=== PATIENT | female | born 1935 | race Caucasian/White ===

== ENCOUNTER 2018-07-17 04:23 | Emergency (ER) | payer MEDICARE, OTHER ==
[2018-07-17 04:48] VITALS: BP 136/73
[2018-07-17] MEDS ORDERED: Ketorolac 30 MG/ML SDV IM ONE (05:12)
--- NOTE | 2018-07-17 05:15 | EDM.PDOC ---
ED HPI GENERAL MEDICAL PROBLEM - General Chief Complaint: Abdominal Pain Stated Complaint: ABDOMINAL PAIN Time Seen by Provider: 07/17/18 05:07 Source of Information: Reports: Patient, Family, RN Notes Reviewed History Limitations: Reports: No Limitations - History of Present Illness INITIAL COMMENTS - FREE TEXT/NARRATIVE: 83-year-old female presents emergency department day complaint of abdominal pain , she states she's had abdominal pain that started about 5 hours prior describes it as it dull achy pain is constant nature she does feel short of breath but no nausea vomiting still passing gas had normal bowel movements no heart history, past surgical history cholecystectomy Upper Abdomen Pain Score (Numeric/FACES): 5 - Related Data Allergies Allergy/AdvReac Type Severity Reaction Status Date / Time gabapentin Allergy Itching Verified 07/17/18 04:50 Home Meds: Home Meds Acetaminophen [Tylenol] 650 mg PO Q4H PRN 10/09/13 [History] Lactobacillus Acidophilus [Acidophilus] 1 each PO DAILY 10/09/13 [History] Multivitamin [Multivitamins] 1 each PO DAILY 10/09/13 [History] Simvastatin [Zocor] 10 mg PO BEDTIME 10/09/13 [History] Aspirin 81 mg PO DAILY 07/17/18 [History] Past Medical History Other Gastrointestinal History: "twisted intestiine" Oncologic (Cancer) History: Reports: Breast - Past Surgical History Head Surgeries/Procedures: Reports: None HEENT Surgical History: Reports: Cataract Surgery GI Surgical History: Reports: Cholecystectomy, Other (See Below) Other GI Surgeries/Procedures: Joi Oncologic Surgical History: Reports: Mastectomy Dermatological Surgical History: Reports: None Social & Family History - Tobacco Use Smoking Status *Q: Never Smoker Second Hand Smoke Exposure: No - Caffeine Use Caffeine Use: Reports: Coffee, Soda, Tea - Recreational Drug Use Recreational Drug Use: No ED ROS GENERAL - Review of Systems Review Of Systems: See Below Constitutional: Denies: Fever, Chills HEENT: Reports: No Symptoms Respiratory: Reports: Shortness of Breath Cardiovascular: Reports: No Symptoms GI/Abdominal: Reports: Abdominal Pain, Flatus. Denies: Constipation, Diarrhea, Nausea, Vomiting : Reports: No Symptoms Musculoskeletal: Reports: No Symptoms Skin: Reports: No Symptoms Neurological: Reports: No Symptoms ED EXAM, GI/ABD - Physical Exam Exam: See Below Exam Limited By: No Limitations General Appearance: Alert, WD/WN, No Apparent Distress Head: Atraumatic Neck: Normal Inspection, Supple, Non-Tender, Full Range of Motion Respiratory/Chest: No Respiratory Distress, Lungs Clear, Normal Breath Sounds, No Accessory Muscle Use, Chest Non-Tender Cardiovascular: Regular Rate, Rhythm, No Murmur GI/Abdominal Exam: Soft, Tender (Right upper quadrant) Course - Vital Signs Last Recorded V/S: Last Vital Signs Temp 97 F 07/17/18 04:49 Pulse 78 07/17/18 04:49 Resp 16 07/17/18 04:49 BP 136/73 07/17/18 04:49 Pulse Ox 98 07/17/18 04:49 - Orders/Labs/Meds Labs: Laboratory Tests 07/17/18 07/17/18 07/17/18 Range/Units 05:25 05:25 05:25 WBC 7.6 (4.5-11.0) K/uL RBC 4.13 (3.30-5.50) M/uL Hgb 13.2 (12.0-15.0) g/dL Hct 40.0 (36.0-48.0) % MCV 97 (80-98) fL MCH 32 H (27-31) pg MCHC 33 (32-36) % Plt Count 180 (150-400) K/uL Neut % (Auto) 77 H (36-66) % Lymph % (Auto) 10 L (24-44) % [place] % (Auto) 10 H (2-6) % Eos % (Auto) 2 (2-4) % Baso % (Auto) 1 (0-1) % Sodium 141 (140-148) mmol/L Potassium 4.0 (3.6-5.2) mmol/L Chloride 103 (100-108) mmol/L Carbon Dioxide 31 (21-32) mmol/L Anion Gap 7.5 (5.0-14.0) mmol/L BUN 13 (7-18) mg/dL Creatinine 0.9 (0.6-1.0) mg/dL Est Cr Clr Drug Dosing 33.42 mL/min Estimated GFR (MDRD) 60 (>60) Glucose 122 H (74-106) mg/dL Lactic Acid 1.4 (0.4-2.0) mmol/L Calcium 9.7 (8.5-10.1) mg/dL Total Bilirubin 0.5 D (0.2-1.0) mg/dL AST 30 (15-37) U/L ALT 30 (12-78) U/L Alkaline Phosphatase 59 (46-116) U/L CK-MB (CK-2) 1.3 (0-3.6) mg/mL Troponin I < 0.017 (0.000-0.056) ng/mL Total Protein 7.6 (6.4-8.2) g/dL Albumin 4.1 (3.4-5.0) g/dL Globulin 3.5 (2.3-3.5) g/dL Albumin/Globulin Ratio 1.2 (1.2-2.2) Lipase 80 (73-393) U/L Urine Color Urine Appearance Urine pH (4.5-8.0) Ur Specific [place] (1.008-1.030) Urine Protein (NEGATIVE) mg/dL Urine Glucose (UA) (NEGATIVE) mg/dL Urine Ketones (NEGATIVE) mg/dL Urine Occult Blood (NEGATIVE) Urine Nitrite (NEGATIVE) Urine Bilirubin (NEGATIVE) Urine Urobilinogen (NORMAL) mg/dL Ur Leukocyte Esterase (NEGATIVE) Urine RBC (0-5) Urine WBC (0-5) Ur Epithelial Cells Amorphous Sediment Urine Bacteria Urine Mucus 07/17/18 Range/Units 05:35 WBC (4.5-11.0) K/uL RBC (3.30-5.50) M/uL Hgb (12.0-15.0) g/dL Hct (36.0-48.0) % MCV (80-98) fL MCH (27-31) pg MCHC (32-36) % Plt Count (150-400) K/uL Neut % (Auto) (36-66) % Lymph % (Auto) (24-44) % [place] % (Auto) (2-6) % Eos % (Auto) (2-4) % Baso % (Auto) (0-1) % Sodium (140-148) mmol/L Potassium (3.6-5.2) mmol/L Chloride (100-108) mmol/L Carbon Dioxide (21-32) mmol/L Anion Gap (5.0-14.0) mmol/L BUN (7-18) mg/dL Creatinine (0.6-1.0) mg/dL Est Cr Clr Drug Dosing mL/min Estimated GFR (MDRD) (>60) Glucose (74-106) mg/dL Lactic Acid (0.4-2.0) mmol/L Calcium (8.5-10.1) mg/dL Total Bilirubin (0.2-1.0) mg/dL AST (15-37) U/L ALT (12-78) U/L Alkaline Phosphatase (46-116) U/L CK-MB (CK-2) (0-3.6) mg/mL Troponin I (0.000-0.056) ng/mL Total Protein (6.4-8.2) g/dL Albumin (3.4-5.0) g/dL Globulin (2.3-3.5) g/dL Albumin/Globulin Ratio (1.2-2.2) Lipase (73-393) U/L Urine Color Yellow Urine Appearance Clear Urine pH 8.0 (4.5-8.0) Ur Specific [place] 1.010 (1.008-1.030) Urine Protein Negative (NEGATIVE) mg/dL Urine Glucose (UA) Normal (NEGATIVE) mg/dL Urine Ketones Negative (NEGATIVE) mg/dL Urine Occult Blood Negative (NEGATIVE) Urine Nitrite Negative (NEGATIVE) Urine Bilirubin Negative (NEGATIVE) Urine Urobilinogen Normal (NORMAL) mg/dL Ur Leukocyte Esterase Negative (NEGATIVE) Urine RBC 0-5 (0-5) Urine WBC 0-5 (0-5) Ur Epithelial Cells Not seen Amorphous Sediment Not seen Urine Bacteria Not seen Urine Mucus Not seen Meds: Medications Discontinued Medications Generic Name Dose Route Start Last Admin Trade Name Mikey PRN Reason Stop Dose Admin Ketorolac Tromethamine 30 mg 07/17/18 05:12 07/17/18 05:16 Toradol IM 07/17/18 05:13 30 mg ONETIME ONE Administration Departure - Departure Time of Disposition: 06:31 Disposition: Home, Self-Care 01 Condition: Fair Clinical Impression: Gastroenteritis - Discharge Information Referrals: Jose Alejandro Madrid MD [Primary Care Provider] - Forms: ED Department Discharge Additional Instructions: Continue regular medications, follow-up with your primary care in 2-3 days if no improvement call return to emergency department worsening of symptoms - Assessment/Plan Plan: Assessment Acuity = acute Site and laterality = gastroenteritis Etiology = unknown etiology Manifestations = abdominal pain Location of injury = Home Lab values = CBC, CMP, troponin, urinalysis unremarkable plain film abdomen consistent with gastroenteritis Plan Good relief with Toradol injection plan is discharge home follow-up primary care 2 to 3 days if not better This note was dictated using [employer] voice recognition software please call with any questions on syntax or grammar.
--- NOTE | 2018-07-17 06:01 | CRLCR ---
INDICATION: Abdominal pain COMPARISON: none TECHNIQUE: Portable AP erect abdomen and pelvis performed at 5:23 a.m. FINDINGS: Either short tests air-fluid levels within nondilated loops of small and large bowel. There is no evidence of free air. Patient has a scoliotic curvature of the spine convex left. Benign-appearing phleboliths are noted within the lower pelvis. IMPRESSION: Nonspecific bowel gas pattern with findings suggesting probable gastroenteritis. Dictated by Blayne Jacskon MD @ 07/17/2018 6:00:31 AM Dictated by: Blayne Jackson MD @ 07/17/2018 06:00:36 (Electronically Signed)
== END 2018-07-17 06:42 | disposition home or self-care (01) ==
LOC: JP.ED 04:23
DX: K52.9 Noninfective gastroenteritis and colitis, unspecified (principal); Z79.899 Other long term (current) drug therapy
CPT/HCPCS: 36415; 74018; 80053; 81001; 82553; 83605; 83690; 84484; 85025; 96372; 99284; J1885

== ENCOUNTER 2019-06-24 12:30 | Emergency (ER) | payer MEDICARE, OTHER ==
[2019-06-24 13:51] VITALS: BP 141/81; PULSE 75
--- NOTE | 2019-06-24 14:07 | EDM.PDOC ---
ED HPI GENERAL MEDICAL PROBLEM - General Chief Complaint: General Stated Complaint: RECATION TO MEDS Time Seen by Provider: 06/24/19 13:45 Source of Information: Reports: Patient, Family History Limitations: Reports: No Limitations - History of Present Illness INITIAL COMMENTS - FREE TEXT/NARRATIVE: 84-year-old female who is having some generalized dizziness, and superficial itching and burning of the skin on her legs after taking 6 days of ciprofloxacin and metronidazole for presumptive diverticulitis. She has no fever or chills and her abdominal pain is been gone for the past 4 days. No constipation, no urinary symptoms. Onset: Gradual Duration: Day(s): (Symptoms have developed over the past 2 days) Location: Reports: Generalized Associated Symptoms: Reports: Other (Dizziness, burning sensation on her lower extremities and generalized malaise and nausea) - Related Data Allergies Allergy/AdvReac Type Severity Reaction Status Date / Time gabapentin Allergy Itching Verified 07/17/18 04:50 Home Meds: Home Meds Acetaminophen [Tylenol] 650 mg PO Q4H PRN 10/09/13 [History] Lactobacillus Acidophilus [Acidophilus] 1 each PO DAILY 10/09/13 [History] Multivitamin [Multivitamins] 1 each PO DAILY 10/09/13 [History] Simvastatin [Zocor] 10 mg PO BEDTIME 10/09/13 [History] Aspirin 81 mg PO DAILY 07/17/18 [History] Ciprofloxacin HCl [Cipro] 500 mg PO BID 06/24/19 [History] metroNIDAZOLE [Metronidazole] 500 mg PO TID 06/24/19 [History] Past Medical History HEENT History: Reports: None Respiratory History: Reports: Bronchitis, Recurrent Gastrointestinal History: Reports: Other (See Below) Other Gastrointestinal History: "twisted intestiine" Oncologic (Cancer) History: Reports: Breast - Infectious Disease History Infectious Disease History: Reports: Hepatitis A, Other (See Below) Other Infectious Disease History: Hep. A was a long time ago - Past Surgical History Head Surgeries/Procedures: Reports: None HEENT Surgical History: Reports: Cataract Surgery Oncologic Surgical History: Reports: Mastectomy Dermatological Surgical History: Reports: None Social & Family History - Tobacco Use Smoking Status *Q: Never Smoker - Caffeine Use Caffeine Use: Reports: None - Recreational Drug Use Recreational Drug Use: Yes ED ROS GENERAL - Review of Systems Review Of Systems: See Below Constitutional: Reports: Malaise. Denies: Fever, Chills HEENT: Reports: No Symptoms Respiratory: Denies: Shortness of Breath, Cough Cardiovascular: Denies: Chest Pain GI/Abdominal: Reports: Nausea. Denies: Abdominal Pain (Abdominal pain is resolved), Constipation, Diarrhea, Vomiting : Reports: No Symptoms Skin: Reports: Other (A burning sensation of her lower extremities without visible rash or swelling is present) Psychiatric: Reports: Anxiety ED EXAM, GENERAL - Physical Exam Exam: See Below Exam Limited By: No Limitations General Appearance: Alert, No Apparent Distress Eye Exam: Bilateral Eye: Normal Inspection Throat/Mouth: Normal Inspection Head: Atraumatic Respiratory/Chest: No Respiratory Distress, Lungs Clear Cardiovascular: Regular Rate, Rhythm GI/Abdominal: Soft, Non-Tender Extremities: Normal Inspection. No: Pedal Edema Neurological: Alert, Oriented Course - Vital Signs Last Recorded V/S: Last Vital Signs Temp 96.1 F 06/24/19 13:51 Pulse 75 06/24/19 13:51 Resp 16 06/24/19 13:51 BP 141/81 H 06/24/19 13:51 Pulse Ox 95 06/24/19 13:51 - Re-Assessments/Exams Free Text/Narrative Re-Assessment/Exam: 06/24/19 15:53 Pain and symptoms are completely gone from the suspected diverticulitis, patient is likely having side effects from the medication so I recommended she stop the medicine. If not improving significantly in the next 48 hours she can return for recheck. Departure - Departure Time of Disposition: 14:14 Disposition: Home, Self-Care 01 Clinical Impression: Medication side effects - Discharge Information Instructions: Diverticulitis, [id number] Referrals: Jose Alejandro Madrid MD [Primary Care Provider] - Forms: ED Department Discharge Care Plan Goals: Stop antibiotics, resume regular diet and activity and stay hydrated. Recheck in 48-72 hours if not improving satisfactorily. Sepsis Event Note - Evaluation Sepsis Screening Result: No Definite Risk - Focused Exam Vital Signs: Vital Signs Temp Pulse Resp BP Pulse Ox 06/24/19 13:51 96.1 F 75 16 141/81 H 95 06/24/19 13:50 96.1 F 75 16 141/81 H 95 Date Exam was Performed: 06/24/19 Time Exam was Performed: 15:51
== END 2019-06-24 14:14 | disposition home or self-care (01) ==
LOC: JP.ED 12:30
DX: R42 Dizziness and giddiness (principal); L29.9 Pruritus, unspecified; T36.8X5A Adverse effect of other systemic antibiotics, initial encounter; T37.8X5A Adverse effect of other specified systemic anti-infectives and antiparasitics, initial encounter; Z88.8 Allergy status to other drugs, medicaments and biological substances; Z79.82 Long term (current) use of aspirin
CPT/HCPCS: 99282; 99283

== ENCOUNTER 2020-09-09 13:21 | Emergency (ER) | payer MEDICARE, OTHER ==
--- NOTE | 2020-09-09 14:59 | EDM.PDOC ---
ED HPI GENERAL MEDICAL PROBLEM - General Chief Complaint: Respiratory Problem Stated Complaint: CHEST ISSUES/SHORT OF BREATHE Time Seen by Provider: 09/09/20 15:30 Source of Information: Reports: Patient, Old Records History Limitations: Reports: No Limitations - History of Present Illness INITIAL COMMENTS - FREE TEXT/NARRATIVE: 85 yo female presents with a complaint of bilateral shoulder pain with SOB that occurred at home this morning. Sx's gone completely about the time she arrived in the ER. No cough. No fever. No personal hx of CAD, but does have a FHx of this. No calf pain or LE edema. Onset: Today, Sudden Onset Date: 09/09/20 Onset Time: 06:00 Duration: Hour(s):, Resolved Prior to Arrival Location: Reports: Upper Extremity, Left (both shoulders), Upper Extremity, Right Quality: Reports: Ache Severity: Moderate Improves with: Reports: Other (? time, gone now) Worsens with: Reports: Other (uncertain) Context: Reports: Other (See HPI) Associated Symptoms: Reports: Shortness of Breath (mild, now resolved) Treatments PHARMACY GRADUATE INTERN: Reports: Other (see below) (none) Chest Pain Score (Numeric/FACES): 3 - Related Data Allergies Allergy/AdvReac Type Severity Reaction Status Date / Time gabapentin Allergy Itching Verified 09/09/20 15:10 Home Meds: Home Meds Acetaminophen [Tylenol] 650 mg PO Q4H PRN 10/09/13 [History] Multivitamin [Multivitamins] 1 each PO DAILY 10/09/13 [History] Simvastatin [Zocor] 10 mg PO BEDTIME 10/09/13 [History] Aspirin 81 mg PO DAILY 07/17/18 [History] Past Medical History HEENT History: Reports: None Respiratory History: Reports: Bronchitis, Recurrent Gastrointestinal History: Reports: Other (See Below) Other Gastrointestinal History: "twisted intestiine" Oncologic (Cancer) History: Reports: Breast - Infectious Disease History Infectious Disease History: Reports: Hepatitis A, Other (See Below) Other Infectious Disease History: Hep. A was a long time ago - Past Surgical History Head Surgeries/Procedures: Reports: None HEENT Surgical History: Reports: Cataract Surgery Oncologic Surgical History: Reports: Mastectomy Dermatological Surgical History: Reports: None Social & Family History - Caffeine Use Caffeine Use: Reports: None ED ROS GENERAL - Review of Systems Review Of Systems: See Below Constitutional: Reports: No Symptoms HEENT: Reports: No Symptoms Respiratory: Reports: Shortness of Breath (now resolved) Cardiovascular: Reports: No Symptoms GI/Abdominal: Reports: No Symptoms : Reports: No Symptoms Musculoskeletal: Reports: Shoulder Pain (bilateral, now resolved) Skin: Reports: No Symptoms Neurological: Reports: No Symptoms ED EXAM, GENERAL - Physical Exam Exam: See Below Exam Limited By: No Limitations General Appearance: Alert, WD/WN, No Apparent Distress Eye Exam: Bilateral Eye: Normal Inspection Ears: Normal External Exam, Normal Canal, Hearing Grossly Normal, Normal TMs Ear Exam: Bilateral Ear: Auricle Normal, Canal Normal Nose: Normal Inspection, No Blood Throat/Mouth: Normal Inspection, Normal Lips, Normal Oropharynx, Normal Voice, No Airway Compromise Head: Atraumatic, Normocephalic Neck: Normal Inspection Respiratory/Chest: No Respiratory Distress, Lungs Clear, Normal Breath Sounds, No Accessory Muscle Use Cardiovascular: Regular Rate, Rhythm, No Edema GI/Abdominal: Normal Bowel Sounds, Soft, Non-Tender, No Distention Back Exam: Normal Inspection Extremities: Normal Inspection, Normal Range of Motion, Non-Tender, No Pedal Edema. No: Pedal Edema Neurological: Alert, Oriented, CN II-XII Intact, Normal Cognition, No Motor/Sensory Deficits Psychiatric: Normal Affect, Normal Mood Skin Exam: Warm, Dry, Intact, Normal Color, No Rash #1 Interpretation EKG Date: 09/09/20 Time: 14:50 Rhythm: NSR Rate (Beats/Min): 62 [place]: Normal P-Wave: Present QRS: RBBB ST-T: Normal QT: Normal Comparison: Change From Previous EKG (New RBBB, T wave inversion V4-V5 new since 10/10/14) Course - Vital Signs Last Recorded V/S: Last Vital Signs Temp 36.7 C 09/09/20 15:05 Pulse 61 09/09/20 15:53 Resp 13 09/09/20 15:53 BP 121/61 09/09/20 15:53 Pulse Ox 97 09/09/20 15:53 - Orders/Labs/Meds Orders: Active Orders 24 hr Category Date Time Status Cardiac Monitoring [RC] .As Directed Care 09/09/20 15:37 Active EKG Documentation Completion [RC] ASDIRECTED Care 09/09/20 14:52 Active EKG 12 Lead [EK] Routine Ther 09/09/20 14:52 Ordered Labs: Laboratory Tests 09/09/20 09/09/20 Range/Units 15:46 15:46 WBC 4.0 L (4.5-11.0) K/uL RBC 3.63 (3.30-5.50) M/uL Hgb 11.5 L (12.0-15.0) g/dL Hct 36.0 (36.0-48.0) % MCV 99 H (80-98) fL MCH 32 H (27-31) pg MCHC 32 (32-36) % Plt Count 148 L (150-400) K/uL Sodium 142 (140-148) mmol/L Potassium 4.4 (3.6-5.2) mmol/L Chloride 106 (100-108) mmol/L Carbon Dioxide 30 (21-32) mmol/L Anion Gap 6.5 (5.0-14.0) mmol/L BUN 11 (7-18) mg/dL Creatinine 0.9 (0.6-1.0) mg/dL Est Cr Clr Drug Dosing TNP Estimated GFR (MDRD) 59 L (>60) Glucose 109 H (74-106) mg/dL Calcium 9.9 (8.5-10.1) mg/dL Troponin I < 0.017 (0.000-0.056) ng/mL Departure - Departure Time of Disposition: 16:26 Disposition: Home, Self-Care 01 Condition: Good Clinical Impression: Atypical chest pain - Discharge Information *PRESCRIPTION DRUG MONITORING PROGRAM REVIEWED*: No *COPY OF PRESCRIPTION DRUG MONITORING REPORT IN PATIENT TERESA: No Instructions: Nonspecific Chest Pain, Adult, [id number] Referrals: Jose Alejandro Madrid MD [Primary Care Provider] - Forms: ED Department Discharge Additional Instructions: Return for your heart test as scheduled, someone may be calling you with the date/time. Continue your current medications. Return if worse. See your doctor after this test for a review of the results. Sepsis Event Note (ED) - Focused Exam Vital Signs: Vital Signs Temp Pulse Resp BP Pulse Ox 09/09/20 15:53 61 13 121/61 97 09/09/20 15:05 36.7 C 63 14 151/63 H 98 09/09/20 14:59 36.7 C 63 14 151/63 H 98 - My Orders Last 24 Hours: My Active Orders 09/09/20 14:52 EKG Documentation Completion [RC] ASDIRECTED EKG 12 Lead [EK] Routine 09/09/20 15:37 Cardiac Monitoring [RC] .As Directed - Assessment/Plan Last 24 Hours: My Active Orders 09/09/20 14:52 EKG Documentation Completion [RC] ASDIRECTED EKG 12 Lead [EK] Routine 09/09/20 15:37 Cardiac Monitoring [RC] .As Directed
[2020-09-09 15:54] VITALS: BP 121/61; PULSE 61
== END 2020-09-09 16:52 | disposition home or self-care (01) ==
LOC: JP.ED 13:21
DX: R07.89 Other chest pain (principal); Z88.8 Allergy status to other drugs, medicaments and biological substances; Z79.82 Long term (current) use of aspirin; Z79.899 Other long term (current) drug therapy
CPT/HCPCS: 36415; 80048; 84484; 85027; 93005; 99284; 99285-25

== ENCOUNTER 2020-09-16 13:17 | Emergency (ER) | payer MEDICARE, OTHER ==
[2020-09-16] MEDS ORDERED: Sodium Chloride 0.9% 10 ML Syringe FLUSH PRN (14:16)
--- NOTE | 2020-09-16 14:23 | EDM.PDOC ---
ED HPI GENERAL MEDICAL PROBLEM - General Chief Complaint: Abdominal Pain Stated Complaint: SHORT OF BREATH/STOMACH Time Seen by Provider: 09/16/20 14:05 Source of Information: Reports: Patient, Old Records, RN History Limitations: Reports: No Limitations - History of Present Illness INITIAL COMMENTS - FREE TEXT/NARRATIVE: 85 yo female presents with "abdominal cramping" and increased belching. Sx's began when she awoke today. Later ate breakfast without change. Slept for an hour and then when she awoke her sx's got worse. No SOB. [place] warm for awhile. Had some radiation for awhile to the left shoulder. Took Peptobismol without relief. No fever. No black stools. No hx of PUD. Has had a Joi fundoplication and a cholecystectomy. Was mildly SOB most of the morning, not now. Onset: Today Onset Date: 09/16/20 Duration: Hour(s):, Waxing/Waning Location: Reports: Abdomen, Upper Extremity, Left (shoulder) Quality: Reports: Other ("cramps", bloating) Severity: Moderate Improves with: Reports: Other (unknown) Worsens with: Reports: Other (unknown) Context: Reports: Other (See HPI) Associated Symptoms: Reports: Loss of Appetite (skipped lunch), Shortness of Breath (mild at home, now resolved). 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 (see below) (none) Abdominal Pain Score (Numeric/FACES): 8 - Related Data Allergies Allergy/AdvReac Type Severity Reaction Status Date / Time gabapentin Allergy Itching Verified 09/16/20 13:59 Home Meds: Home Meds Acetaminophen [Tylenol] 650 mg PO Q4H PRN 10/09/13 [History] Multivitamin [Multivitamins] 1 each PO DAILY 10/09/13 [History] Simvastatin [Zocor] 10 mg PO BEDTIME 10/09/13 [History] Aspirin 81 mg PO DAILY 07/17/18 [History] Past Medical History HEENT History: Reports: Cataract Cardiovascular History: Reports: High Cholesterol Respiratory History: Reports: Bronchitis, Recurrent Gastrointestinal History: Reports: Chronic Constipation, GERD, Other (See Below) Other Gastrointestinal History: "twisted intestiine" Genitourinary History: Reports: None Oncologic (Cancer) History: Reports: Breast - Infectious Disease History Infectious Disease History: Reports: Hepatitis A, Other (See Below) Other Infectious Disease History: Hep. A was a long time ago - Past Surgical History Head Surgeries/Procedures: Reports: None HEENT Surgical History: Reports: Cataract Surgery Respiratory Surgical History: Reports: None GI Surgical History: Reports: Cholecystectomy, Other (See Below) Other GI Surgeries/Procedures: Joi Oncologic Surgical History: Reports: Mastectomy Dermatological Surgical History: Reports: None Social & Family History - Tobacco Use Tobacco Use Status *Q: Never Tobacco User - Caffeine Use Caffeine Use: Reports: Coffee Caffeine Use Comment: [place] - Recreational Drug Use Recreational Drug Use: No ED ROS GENERAL - Review of Systems Review Of Systems: See Below Constitutional: Reports: Malaise HEENT: Reports: No Symptoms Respiratory: Reports: Shortness of Breath (mild at home earlier) Cardiovascular: Denies: Chest Pain Endocrine: Reports: No Symptoms GI/Abdominal: Reports: Abdominal Pain (cramps) : Reports: No Symptoms Musculoskeletal: Reports: No Symptoms Skin: Reports: No Symptoms Neurological: Reports: No Symptoms Psychiatric: Reports: No Symptoms ED EXAM, GI/ABD - Physical Exam Exam: See Below Exam Limited By: No Limitations General Appearance: Alert, WD/WN, No Apparent Distress Eyes: Bilateral: Normal Appearance Ears: Normal External Exam, Normal Canal, Hearing Grossly Normal Nose: Normal Inspection, No Blood Throat/Mouth: Normal Inspection, Normal Lips, Normal Oropharynx, Normal Voice, No Airway Compromise Head: Atraumatic, Normocephalic Neck: Normal Inspection Respiratory/Chest: No Respiratory Distress, Lungs Clear, Normal Breath Sounds, No Accessory Muscle Use, Chest Non-Tender Cardiovascular: Regular Rate, Rhythm, No Edema GI/Abdominal Exam: Normal Bowel Sounds, Soft, No Distention, Tender (mild upper abdominal tenderness). No: Non-Tender, Distended Back Exam: Normal Inspection Extremities: Normal Inspection, Normal Range of Motion, Non-Tender, No Pedal Edema Neurological: Alert, Oriented, CN II-XII Intact, Normal Cognition, No Motor/ Sensory Deficits Psychiatric: Normal Affect, Normal Mood Skin Exam: Warm, Dry, Intact, Normal Color, No Rash #1 Interpretation EKG Date: 09/16/20 Time: 14:45 Rhythm: NSR Rate (Beats/Min): 70 Iva: Normal P-Wave: Present QRS: RBBB ST-T: Normal QT: Normal Comparison: No Change (T wave inversions in several leads, not new.) Course - Vital Signs Last Recorded V/S: Last Vital Signs Temp 36.6 C 09/16/20 14:02 Pulse 75 09/16/20 14:02 Resp 22 H 09/16/20 14:04 BP 145/79 H 09/16/20 14:02 Pulse Ox 97 09/16/20 14:04 - Orders/Labs/Meds Orders: Active Orders 24 hr Category Date Time Status Cardiac Monitoring [RC] .As Directed Care 09/16/20 14:15 Active EKG Documentation Completion [RC] ASDIRECTED Care 09/16/20 14:15 Active UA W/MICROSCOPIC [URIN] Stat Lab 09/16/20 14:15 Ordered Sodium Chloride 0.9% [Saline Flush] Med 09/16/20 14:16 Active 10 ml FLUSH ASDIRECTED PRN Saline Lock Insert [OM.PC] Routine Oth 09/16/20 14:16 Ordered EKG 12 Lead [EK] Routine Ther 09/16/20 14:15 Ordered Medication Orders Sodium Chloride (Sodium Chloride 0.9% 10 Ml Syringe) 10 ml FLUSH ASDIRECTED PRN PRN Reason: Keep Vein Open Last Admin: 09/16/20 15:14 Dose: 10 ml Documented by: PREILOR Labs: Laboratory Tests 09/16/20 09/16/20 09/16/20 Range/Units 14:20 14:20 14:20 WBC 5.2 (4.5-11.0) K/uL RBC 3.78 (3.30-5.50) M/uL Hgb 12.0 (12.0-15.0) g/dL Hct 37.2 (36.0-48.0) % MCV 98 (80-98) fL MCH 32 H (27-31) pg MCHC 32 (32-36) % Plt Count 175 (150-400) K/uL Sodium 142 (140-148) mmol/L Potassium 4.3 (3.6-5.2) mmol/L Chloride 103 (100-108) mmol/L Carbon Dioxide 31 (21-32) mmol/L Anion Gap 7.7 (5.0-14.0) mmol/L BUN 14 (7-18) mg/dL Creatinine 0.9 (0.6-1.0) mg/dL Est Cr Clr Drug Dosing 36.34 mL/min Estimated GFR (MDRD) 59 L (>60) Glucose 102 (74-106) mg/dL Calcium 10.1 (8.5-10.1) mg/dL Troponin I < 0.017 (0.000-0.056) ng/mL Lipase 73 (73-393) U/L Meds: Medications Generic Name Dose Route Start Last Admin Trade Name Freq PRN Reason Stop Dose Admin Sodium Chloride 10 ml 09/16/20 14:16 09/16/20 15:14 Sodium Chloride 0.9% 10 Ml Syringe FLUSH 10 ml ASDIRECTED PRN Administration Keep Vein Open Discontinued Medications Generic Name Dose Route Start Last Admin Trade Name Freq PRN Reason Stop Dose Admin Al Hydroxide/Mg Hydroxide 30 ml 09/16/20 14:53 09/16/20 15:12 Aluminum Hydroxide/Magnesium Hydroxide/Simethicone Susp 30 Ml Cup PO 09/16/20 14:54 30 ml ONETIME ONE Administration Simethicone 160 mg 09/16/20 14:53 09/16/20 15:13 Simethicone 80 Mg Tab.Chew PO 09/16/20 14:54 160 mg ONETIME ONE Administration - Re-Assessments/Exams Free Text/Narrative Re-Assessment/Exam: 09/16/20 15:26 Some relief with Maalox and simethicone. Departure - Departure Time of Disposition: 15:40 Disposition: Home, Self-Care 01 Condition: Good Clinical Impression: Indigestion, Neuropathy - Discharge Information *PRESCRIPTION DRUG MONITORING PROGRAM REVIEWED*: Not Applicable *COPY OF PRESCRIPTION DRUG MONITORING REPORT IN PATIENT TERESA: Not Applicable Instructions: Indigestion, [id number], Peripheral Neuropathy Referrals: Jose Alejandro Madrid MD [Primary Care Provider] - Forms: ED Department Discharge Additional Instructions: F/U with your provider MILADIS for recheck. Take Maalox Plus OR Mylanta II 30 ml after meals and at bedtime as needed for your indigestion and gas. If you start getting loose stools, switch to simethicone for your indigestion. Sepsis Event Note (ED) - Evaluation Sepsis Screening Result: No Definite Risk - Focused Exam Vital Signs: Vital Signs Temp Pulse Resp BP Pulse Ox 09/16/20 14:04 22 H 97 09/16/20 14:02 36.6 C 75 22 H 145/79 H 97 - My Orders Last 24 Hours: My Active Orders 09/16/20 14:15 Cardiac Monitoring [RC] .As Directed EKG Documentation Completion [RC] ASDIRECTED UA W/MICROSCOPIC [URIN] Stat EKG 12 Lead [EK] Routine 09/16/20 14:16 Sodium Chloride 0.9% [Saline Flush] 10 ml FLUSH ASDIRECTED PRN Saline Lock Insert [OM.PC] Routine - Assessment/Plan Last 24 Hours: My Active Orders 09/16/20 14:15 Cardiac Monitoring [RC] .As Directed EKG Documentation Completion [RC] ASDIRECTED UA W/MICROSCOPIC [URIN] Stat EKG 12 Lead [EK] Routine 09/16/20 14:16 Sodium Chloride 0.9% [Saline Flush] 10 ml FLUSH ASDIRECTED PRN Saline Lock Insert [OM.PC] Routine
[2020-09-16] MEDS ORDERED: Simethicone 80 MG Tab.Chew PO ONE (14:53)
[2020-09-16] MEDS ORDERED: Aluminum Hydroxide/Magnesium Hydroxide/Simethicone Susp 30 ML Cup PO ONE (14:53)
[2020-09-16 15:43] VITALS: BP 130/64; PULSE 69
== END 2020-09-16 16:03 | disposition home or self-care (01) ==
LOC: JP.ED 13:17
DX: K30 Functional dyspepsia (principal); G62.9 Polyneuropathy, unspecified; E78.00 Pure hypercholesterolemia, unspecified; Z79.82 Long term (current) use of aspirin; Z79.899 Other long term (current) drug therapy; Z88.8 Allergy status to other drugs, medicaments and biological substances
CPT/HCPCS: 36415; 80048; 83690; 84484; 85027; 93005; 99284; A9270

== ENCOUNTER 2020-12-12 05:49 | Emergency (ER) | payer MEDICARE, OTHER ==
[2020-12-12] MEDS ORDERED: Albuterol 0.083% 2.5 MG/3 ML Neb Soln NEB ONE (06:30)
--- NOTE | 2020-12-12 06:36 | EDM.PDOC ---
<Madhav Curran G - Last Filed: 12/12/20 06:31> ED HPI GENERAL MEDICAL PROBLEM - General Chief Complaint: Respiratory Problem Stated Complaint: SOB Time Seen by Provider: 12/12/20 06:20 Source of Information: Reports: Patient, Old Records, RN History Limitations: Reports: No Limitations - History of Present Illness INITIAL COMMENTS - FREE TEXT/NARRATIVE: 85 yo female here with runny nose, congestion, cough and SOB. Sx's began in the night last night. No fever. No hx of lung dz. Cough non-productive. Here with her . Onset: Gradual Onset Date: 12/11/20 Duration: Day(s): (1+), Getting Worse Location: Reports: Face (nose), Chest Quality: Reports: Other (pain not reported) Severity: Moderate Improves with: Reports: None Worsens with: Reports: Other (time) Context: Reports: Other (See HPI) Associated Symptoms: Reports: Cough, Shortness of Breath. Denies: Fever/Chills Treatments BEFORE SCHOOL: Reports: Other (see below) (none) - Related Data Allergies Allergy/AdvReac Type Severity Reaction Status Date / Time gabapentin Allergy Itching Verified 12/12/20 06:11 Home Meds: Home Meds Acetaminophen [Tylenol] 650 mg PO Q4H PRN 10/09/13 [History] Multivitamin [Multivitamins] 1 each PO DAILY 10/09/13 [History] Simvastatin [Zocor] 10 mg PO BEDTIME 10/09/13 [History] Aspirin 81 mg PO DAILY 07/17/18 [History] Pregabalin 25 mg PO DAILY 12/12/20 [History] Past Medical History HEENT History: Reports: Cataract Cardiovascular History: Reports: High Cholesterol Respiratory History: Reports: Bronchitis, Recurrent Gastrointestinal History: Reports: Chronic Constipation, GERD, Other (See Below) Other Gastrointestinal History: "twisted intestiine" Genitourinary History: Reports: None 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 A was a long time ago - Past Surgical History Head Surgeries/Procedures: Reports: None HEENT Surgical History: Reports: Cataract Surgery Cardiovascular Surgical History: Reports: None Respiratory Surgical History: Reports: None GI Surgical History: Reports: Cholecystectomy, Other (See Below) Other GI Surgeries/Procedures: Joi Neurological Surgical History: Reports: Other (See Below) Oncologic Surgical History: Reports: Mastectomy Dermatological Surgical History: Reports: None Social & Family History - Tobacco Use Tobacco Use Status *Q: Never Tobacco User Second Hand Smoke Exposure: No - Caffeine Use Caffeine Use: Reports: Coffee Caffeine Use Comment: [place] - Recreational Drug Use Recreational Drug Use: No ED ROS GENERAL - Review of Systems Review Of Systems: See Below Constitutional: Denies: Fever, Chills HEENT: Reports: Rhinitis, Other (nasal congestion) Respiratory: Reports: Shortness of Breath, Cough. Denies: Wheezing, Sputum, Hemoptysis Cardiovascular: Reports: No Symptoms GI/Abdominal: Reports: No Symptoms : Reports: No Symptoms Musculoskeletal: Reports: No Symptoms Skin: Reports: No Symptoms Neurological: Reports: No Symptoms ED EXAM, GENERAL - Physical Exam Exam: See Below Exam Limited By: No Limitations General Appearance: Alert, WD/WN, No Apparent Distress Eye Exam: Bilateral Eye: Normal Inspection Ears: Normal External Exam, Normal Canal, Hearing Loss Ear Exam: Bilateral Ear: Auricle Normal, Canal Normal Nose: Clear Rhinorrhea, Other (bilat. nasal congestion) Throat/Mouth: Normal Inspection, Normal Lips, Normal Oropharynx, Normal Voice, No Airway Compromise Head: Atraumatic, Normocephalic Neck: Normal Inspection Respiratory/Chest: No Respiratory Distress, Lungs Clear, No Accessory Muscle Use, Chest Non-Tender, Decreased Breath Sounds Cardiovascular: Regular Rate, Rhythm Back Exam: Normal Inspection. No: CVA Tenderness (R), CVA Tenderness (L) Extremities: Normal Inspection, Normal Range of Motion, Non-Tender. No: No Pedal Edema (trace pitting edema of both LE's) Neurological: Alert, Oriented, CN II-XII Intact, Normal Cognition, No Motor/Sensory Deficits Psychiatric: Normal Affect, Normal Mood Skin Exam: Warm, Dry, Intact, Normal Color, No Rash Departure - Departure Disposition: Home, Self-Care 01 Clinical Impression: Nasal congestion - Discharge Information Referrals: Jose Alejandro Madrid MD [Primary Care Provider] - Forms: ED Department Discharge Additional Instructions: Try your nasal sprays that you have at home, continue symptomatic care, please followup with your primary care provider in 3-5 days if not better, please call return to the emergency department with worsening of symptoms. Sepsis Event Note (ED) - Evaluation Sepsis Screening Result: No Definite Risk <OfficerOscar - Last Filed: 12/12/20 07:25> Course - Vital Signs Last Recorded V/S: Last Vital Signs Temp 98.5 F 12/12/20 06:13 Pulse 98 12/12/20 07:10 Resp 16 12/12/20 07:10 BP 121/53 L 12/12/20 07:10 Pulse Ox 96 12/12/20 07:10 - Orders/Labs/Meds Orders: Active Orders 24 hr Category Date Time Status RT Aerosol Therapy [RC] ASDIRECTED Care 12/12/20 06:31 Active Meds: Medications Discontinued Medications Generic Name Dose Route Start Last Admin Trade Name Freq PRN Reason Stop Dose Admin Albuterol 2.5 mg 12/12/20 06:30 12/12/20 06:34 Albuterol 0.083% 2.5 Mg/3 Ml Neb Soln NEB 12/12/20 06:31 2.5 mg ONETIME ONE Administration Departure - Departure Time of Disposition: 07:24 Condition: Fair Sepsis Event Note (ED) - Focused Exam Vital Signs: Vital Signs Temp Pulse Resp BP Pulse Ox 12/12/20 07:10 98 16 121/53 L 96 12/12/20 06:13 98.5 F 88 12 139/68 94 L 12/12/20 06:12 98.5 F 88 12 139/68 94 L - Assessment/Plan Plan: Took over care from Dr. Curran at 7 AM Assessment Acuity = acute Site and laterality = nasal congestion Etiology = probably allergy related Manifestations = none Location of injury = Home Lab values = none Plan She had some relief with the albuterol neb provided she is going to try her nasal sprays that she has at home follow-up primary care 3 to 5 days if not better This note was dictated using [facility] voice recognition software please call with any questions on syntax or grammar.
[2020-12-12 07:10] VITALS: BP 121/53; PULSE 98
== END 2020-12-12 07:38 | disposition home or self-care (01) ==
LOC: JP.ED 05:49
DX: R09.81 Nasal congestion (principal); R09.89 Other specified symptoms and signs involving the circulatory and respiratory systems; R05 Cough; R06.02 Shortness of breath; E78.00 Pure hypercholesterolemia, unspecified; Z79.82 Long term (current) use of aspirin; Z88.8 Allergy status to other drugs, medicaments and biological substances; Z79.899 Other long term (current) drug therapy
CPT/HCPCS: 94640; 99284-25

== ENCOUNTER 2020-12-14 14:11 | Emergency (ER) | payer MEDICARE, OTHER ==
[2020-12-14 14:27] VITALS: BP 130/83; PULSE 67
--- NOTE | 2020-12-14 14:50 | EDM.PDOC ---
<Vanessa Barrios - Last Filed: 12/14/20 17:41> ED HPI GENERAL MEDICAL PROBLEM - General Chief Complaint: General Stated Complaint: TROUBLE BREATHING Time Seen by Provider: 12/14/20 14:35 Source of Information: Reports: Patient, Family History Limitations: Reports: No Limitations - History of Present Illness INITIAL COMMENTS - FREE TEXT/NARRATIVE: 85 year old female arrives to ER from home with due to cough and shortness of breath. 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 Over the last few day she has noticed that she feels more short of breath, and her cough has become more coarse with green sputum production. She states that she was seen in the ER 2 days ago but has not since improved. Denies fevers, being around recently ill people, has no nausea, vomiting, or diarrhea. Denies urinary complaints, abnormal bowel complaints, and has had a good oral intake despite her symptoms. Associated symptoms include nasal congestion, fatigue, and mild activity intolerance. Denies history of COPD, CHF, other significant health issues. Reports that she has been vaccinated for Covid-19. Denies history of smoking. Onset: Gradual Onset Date: 12/11/20 Duration: Day(s): Location: Reports: Other (cough- coarse with moderate shortness of breath) Quality: Reports: Other (no ) Improves with: Reports: None Worsens with: Reports: Rest Context: Reports: Activity Associated Symptoms: Reports: Cough, Weakness - Related Data Allergies Allergy/AdvReac Type Severity Reaction Status Date / Time gabapentin Allergy Itching Verified 12/12/20 06:11 Home Meds: Home Meds Acetaminophen [Tylenol] 650 mg PO Q4H PRN 10/09/13 [History] Multivitamin [Multivitamins] 1 each PO DAILY 10/09/13 [History] Simvastatin [Zocor] 10 mg PO BEDTIME 10/09/13 [History] Aspirin 81 mg PO DAILY 07/17/18 [History] Pregabalin 25 mg PO DAILY 12/12/20 [History] Past Medical History HEENT History: Reports: Cataract Cardiovascular History: Reports: High Cholesterol Respiratory History: Reports: Bronchitis, Recurrent Gastrointestinal History: Reports: Chronic Constipation, GERD, Other (See Below) Other Gastrointestinal History: "twisted intestiine" Genitourinary History: Reports: None 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 A was a long time ago - Past Surgical History Head Surgeries/Procedures: Reports: None HEENT Surgical History: Reports: Cataract Surgery Cardiovascular Surgical History: Reports: None Respiratory Surgical History: Reports: None GI Surgical History: Reports: Cholecystectomy, Other (See Below) Other GI Surgeries/Procedures: Joi Neurological Surgical History: Reports: Other (See Below) Oncologic Surgical History: Reports: Mastectomy Dermatological Surgical History: Reports: None Social & Family History - Tobacco Use Tobacco Use Status *Q: Never Tobacco User - Caffeine Use Caffeine Use: Reports: Coffee Caffeine Use Comment: [place] - Recreational Drug Use Recreational Drug Use: No ED ROS GENERAL - Review of Systems Review Of Systems: See Below Constitutional: Reports: Weakness, Fatigue. Denies: Fever, Chills, Decreased Appetite, Weight Loss HEENT: Reports: No Symptoms Respiratory: Reports: Shortness of Breath (with activity), Cough (coarse cough), Sputum (green sputum production) Cardiovascular: Denies: Chest Pain, Blood Pressure Problem, Palpitations, Syncope Endocrine: Reports: No Symptoms GI/Abdominal: Denies: Abdominal Pain, Black Stool, Diarrhea, Nausea, Vomiting : Denies: Dysuria, Flank Pain, Hematuria Musculoskeletal: Reports: No Symptoms Skin: Reports: No Symptoms. Denies: Bruising, Rash, Wound Neurological: Reports: No Symptoms. Denies: Confusion, Dizziness, Headache, Numbness, Syncope, Difficulty Walking Psychiatric: Reports: No Symptoms Hematologic/Lymphatic: Reports: No Symptoms Immunologic: Reports: No Symptoms ED EXAM, GENERAL - Physical Exam Exam: See Below Free Text/Narrative:: Hannah is a well appearing 85 year old female. She is resting on the cart with her at the bedside. Respirations are regular and non labored. skin is warm an dry. She is alert and oriented. She has clear lung sounds throughout, maybe slightly diminished in the LLL. Coarse cough is heard. Abdomen is non tender with palpation, no pedal edema present. Mucous membranes are moist. She is afebrile with normal vital signs. Able to easily situate self in bed. Exam Limited By: No Limitations General Appearance: Alert, WD/WN, No Apparent Distress Ears: Normal External Exam Nose: Normal Inspection, Normal Mucosa, No Blood Throat/Mouth: Normal Inspection, Normal Lips Head: Atraumatic Neck: Normal Inspection, Non-Tender, Full Range of Motion Respiratory/Chest: Lungs Clear, Normal Breath Sounds, Chest Non-Tender. No: Respiratory Distress, Crackles, Wheezing Cardiovascular: Normal Peripheral Pulses, Regular Rate, Rhythm, No Edema GI/Abdominal: Normal Bowel Sounds, Soft, Non-Tender, No Distention. No: Distended, Guarding, Rigid (Female) Exam: Deferred Rectal (Female) Exam: Deferred Back Exam: Normal Inspection, Full Range of Motion Extremities: Normal Inspection, Normal Range of Motion, Non-Tender. No: Pedal Edema Neurological: Alert, Oriented, Normal Cognition. No: Disoriented, Unresponsive Psychiatric: Normal Affect, Normal Mood Skin Exam: Warm, Dry, Intact, Normal Color, No Rash Lymphatic: No Adenopathy Course - Vital Signs Text/Narrative:: Chest xray ordered. Patient agrees with plan of care at this time. - Re-Assessments/Exams Free Text/Narrative Re-Assessment/Exam: 12/14/20 15:30 Patient updated that we are waiting for the radiologist read of her chest xray at this time. She continues to have cough and congestion. Reports that she has been using cough syrup and cough drops that do seem to help. Departure - Departure Time of Disposition: 16:02 Disposition: Home, Self-Care 01 Condition: Good Clinical Impression: Pneumonia - Discharge Information Instructions: Community-Acquired Pneumonia, Adult, [id number] Referrals: PCP,None [Primary Care Provider] - Forms: ED Department Discharge Additional Instructions: Your chest xray shows some left lower lobe pneumonia. We sent a prescription for Tessalon pearls #15, one tablet 3x per day as needed for your cough, and Zithromax (antibiotic), take as directed for 5 days. You can take tylenol or ibuprofen for fever and generalized aches. You can continue to use cough drops as needed as well. Return to the ER if you do not seem to improve with medications or if you develop chest pain, increased shortness of breath, fever, persistent vomiting or diarrhea. Sepsis Event Note (ED) - Evaluation Sepsis Screening Result: No Definite Risk <Estevan Berman - Last Filed: 12/15/20 07:35> Course - Vital Signs Last Recorded V/S: Last Vital Signs Temp 98.2 F 12/14/20 14:26 Pulse 67 12/14/20 14:26 Resp 20 12/14/20 14:26 BP 130/83 12/14/20 14:26 Pulse Ox 94 L 12/14/20 14:26 Attestation - Student - Attestation Statement Attestation Statement: I personally performed or re-performed the physical examination and medical decision making. I have verified all student documentation or findings, including history, physical exam and/or medical decision making.
--- NOTE | 2020-12-14 16:03 | CR ---
CHEST: 2 view CLINICAL HISTORY:SOB, cough COMPARISON:2014 FINDINGS: Heart size and pulmonary vascularity are normal. The aorta Lungs are hyperaerated.. There is some faint patchy density in the left infrahilar region extending posteriorly. This is felt to represent left lower lobe pneumonia. Some of this density is chronic. IMPRESSION: Patchy left lower lobe density is suspect for infiltrate. This is superimposed over some COPD
== END 2020-12-14 16:02 | disposition home or self-care (01) ==
LOC: JP.ED 14:11
DX: J18.9 Pneumonia, unspecified organism (principal); E78.00 Pure hypercholesterolemia, unspecified; Z79.82 Long term (current) use of aspirin; Z79.899 Other long term (current) drug therapy; Z88.8 Allergy status to other drugs, medicaments and biological substances
CPT/HCPCS: 71046; 71046-26; 99284-25

== ENCOUNTER 2021-04-18 11:34 | Emergency (ER) | payer MEDICARE, OTHER ==
[2021-04-18 13:52] VITALS: BP 123/59; PULSE 64
--- NOTE | 2021-04-18 14:23 | EDM.PDOC ---
ED HPI GENERAL MEDICAL PROBLEM - General Chief Complaint: Gastrointestinal Problem Stated Complaint: STOMACH UPSET, WEAK Time Seen by Provider: 04/18/21 14:15 Source of Information: Reports: Patient, Family, RN Notes Reviewed History Limitations: Reports: No Limitations - History of Present Illness INITIAL COMMENTS - FREE TEXT/NARRATIVE: 85-year-old female presents emergency department day complaint of abdominal pain, she states that increasing pain over the last 3 days. She is recently getting over a bout of shingles in the T12 region on the right side. Has been taking medications for that. She states the pain feels a little different its more in her abdomen she has had normal bowel movements no shortness of breath no chest pain no epigastric discomfort. - Related Data Allergies Allergy/AdvReac Type Severity Reaction Status Date / Time gabapentin Allergy Itching Verified 04/18/21 13:55 Home Meds: Home Meds Acetaminophen [Tylenol] 650 mg PO Q4H PRN 10/09/13 [History] Multivitamin [Multivitamins] 1 each PO DAILY 10/09/13 [History] Simvastatin [Zocor] 10 mg PO BEDTIME 10/09/13 [History] Aspirin 81 mg PO DAILY 07/17/18 [History] Pregabalin 25 mg PO BID 12/12/20 [History] Naproxen 250 mg PO TID 04/18/21 [History] Ondansetron [Zofran ODT] 4 mg SL Q8H PRN 04/18/21 [History] Past Medical History HEENT History: Reports: Cataract Cardiovascular History: Reports: High Cholesterol Respiratory History: Reports: Bronchitis, Recurrent Gastrointestinal History: Reports: Chronic Constipation, GERD, Other (See Below) Other Gastrointestinal History: "twisted intestiine" [employer] History: Reports: Oncologic (Cancer) History: Reports: Breast - Infectious Disease History Infectious Disease History: Reports: Hepatitis A, Other (See Below) Other Infectious Disease History: Hep. A was a long time ago - Past Surgical History Head Surgeries/Procedures: Reports: None HEENT Surgical History: Reports: Cataract Surgery Cardiovascular Surgical History: Reports: None Respiratory Surgical History: Reports: None GI Surgical History: Reports: Cholecystectomy, Other (See Below) Other GI Surgeries/Procedures: Joi Neurological Surgical History: Reports: Other (See Below) Oncologic Surgical History: Reports: Mastectomy Dermatological Surgical History: Reports: None Social & Family History - Tobacco Use Tobacco Use Status *Q: Never Tobacco User - Caffeine Use Caffeine Use: Reports: Coffee Caffeine Use Comment: quincy - Recreational Drug Use Recreational Drug Use: No ED ROS GENERAL - Review of Systems Review Of Systems: See Below Constitutional: Reports: No Symptoms HEENT: Reports: No Symptoms Respiratory: Reports: No Symptoms Cardiovascular: Reports: No Symptoms GI/Abdominal: Reports: Abdominal Pain, Flatus. Denies: Nausea, Vomiting Skin: Reports: Other (Zoster rash improving) ED EXAM, GI/ABD - Physical Exam Exam: See Below Exam Limited By: No Limitations General Appearance: Alert, WD/WN, No Apparent Distress Respiratory/Chest: No Respiratory Distress, Lungs Clear, Normal Breath Sounds, No Accessory Muscle Use, Chest Non-Tender Cardiovascular: Regular Rate, Rhythm, No Murmur GI/Abdominal Exam: Soft, Non-Tender Course - Vital Signs Last Recorded V/S: Last Vital Signs Temp 98.2 F 04/18/21 13:54 Pulse 64 04/18/21 13:54 Resp 16 04/18/21 13:54 BP 123/59 L 04/18/21 13:54 Pulse Ox 96 04/18/21 13:54 - Orders/Labs/Meds Orders: Active Orders 24 hr Category Date Time Status Abdomen 1V Upright [CR] Stat Exams 04/18/21 14:21 Taken LACTIC ACID [CHEM] Stat Lab 04/18/21 14:30 Received UA W/MICROSCOPIC [URIN] Stat Lab 04/18/21 14:21 Ordered Simethicone Med 04/18/21 15:12 Ordered 125 mg PO Q6H PRN Medication Orders Simethicone (Simethicone 125 Mg Tab.Chew) 125 mg PO Q6H PRN PRN Reason: Abdominal Pain Labs: Laboratory Tests 04/18/21 04/18/21 04/18/21 Range/Units 14:00 14:30 14:30 WBC 6.6 (4.5-11.0) K/uL RBC 3.52 (3.30-5.50) M/uL Hgb 11.2 L (12.0-15.0) g/dL Hct 34.3 L (36.0-48.0) % MCV 97 (80-98) fL MCH 32 H (27-31) pg MCHC 33 (32-36) % Plt Count 183 (150-400) K/uL Neut % (Auto) 69.5 H (36-66) % Lymph % (Auto) 14.5 L (24-44) % Parmer % (Auto) 14.3 H (2-6) % Eos % (Auto) 1.2 L (2-4) % Baso % (Auto) 0.5 (0-1) % Sodium 140 (140-148) mmol/L Potassium 4.3 (3.6-5.2) mmol/L Chloride 104 (100-108) mmol/L Carbon Dioxide 30 (21-32) mmol/L Anion Gap 6.2 (5.0-14.0) mmol/L BUN 16 (7-18) mg/dL Creatinine 0.9 (0.6-1.0) mg/dL Est Cr Clr Drug Dosing 32.23 mL/min Estimated GFR (MDRD) 59 L (>60) Glucose 102 (74-106) mg/dL Calcium 8.9 (8.5-10.1) mg/dL Total Bilirubin 0.4 (0.2-1.0) mg/dL AST 24 (15-37) U/L ALT 23 (12-78) U/L Alkaline Phosphatase 61 (46-116) U/L Total Protein 6.8 (6.4-8.2) g/dL Albumin 3.7 (3.4-5.0) g/dL Globulin 3.1 (2.3-3.5) g/dL Albumin/Globulin Ratio 1.2 (1.2-2.2) Lipase (73-393) U/L SARS CoV-2 RNA Rapid DUSTIN Negative 04/18/21 Range/Units 14:30 WBC (4.5-11.0) K/uL RBC (3.30-5.50) M/uL Hgb (12.0-15.0) g/dL Hct (36.0-48.0) % MCV (80-98) fL MCH (27-31) pg MCHC (32-36) % Plt Count (150-400) K/uL Neut % (Auto) (36-66) % Lymph % (Auto) (24-44) % Parmer % (Auto) (2-6) % Eos % (Auto) (2-4) % Baso % (Auto) (0-1) % Sodium (140-148) mmol/L Potassium (3.6-5.2) mmol/L Chloride (100-108) mmol/L Carbon Dioxide (21-32) mmol/L Anion Gap (5.0-14.0) mmol/L BUN (7-18) mg/dL Creatinine (0.6-1.0) mg/dL Est Cr Clr Drug Dosing mL/min Estimated GFR (MDRD) (>60) Glucose (74-106) mg/dL Calcium (8.5-10.1) mg/dL Total Bilirubin (0.2-1.0) mg/dL AST (15-37) U/L ALT (12-78) U/L Alkaline Phosphatase (46-116) U/L Total Protein (6.4-8.2) g/dL Albumin (3.4-5.0) g/dL Globulin (2.3-3.5) g/dL Albumin/Globulin Ratio (1.2-2.2) Lipase 46 L (73-393) U/L SARS CoV-2 RNA Rapid DUSTIN Meds: Medications Generic Name Dose Route Start Last Admin Trade Name Freq PRN Reason Stop Dose Admin Simethicone 125 mg 04/18/21 15:12 Simethicone 125 Mg Tab.Chew PO Q6H PRN Abdominal Pain Departure - Departure Time of Disposition: 15:15 Disposition: Home, Self-Care 01 Condition: Fair Clinical Impression: Abdominal pain Qualifiers: Abdominal location: generalized Qualified Code(s): R10.84 - Generalized abdominal pain - Discharge Information Instructions: Abdominal Pain, Adult Referrals: PCP,None [Primary Care Provider] - Forms: ED Department Discharge Additional Instructions: Try the simethicone this is [id number] medication, please followup with your primary care provider in 3-5 days if not better, please call return to the emergency department with worsening of symptoms. Sepsis Event Note (ED) - Evaluation Sepsis Screening Result: No Definite Risk - Focused Exam Vital Signs: Vital Signs Temp Pulse Resp BP Pulse Ox 04/18/21 13:54 98.2 F 64 16 123/59 L 96 04/18/21 13:51 98.2 F 64 16 123/59 L 96 - My Orders Last 24 Hours: My Active Orders 04/18/21 14:21 Abdomen 1V Upright [CR] Stat UA W/MICROSCOPIC [URIN] Stat 04/18/21 14:30 LACTIC ACID [CHEM] Stat 04/18/21 15:12 Simethicone 125 mg PO Q6H PRN - Assessment/Plan Last 24 Hours: My Active Orders 04/18/21 14:21 Abdomen 1V Upright [CR] Stat UA W/MICROSCOPIC [URIN] Stat 04/18/21 14:30 LACTIC ACID [CHEM] Stat 04/18/21 15:12 Simethicone 125 mg PO Q6H PRN Plan: Assessment Acuity = acute Site and laterality = abdominal pain complicated with post shingles exacerbation area teeth 12 Etiology = unknown Manifestations = none Location of injury = Home Lab values = CBC CMP unremarkable plain film of the abdomen reveals large amount of stool and gas nonspecific finding official read radiologist pending Plan I did review lab work with her she is can try some simethicone and then follow- up with primary care in the next 3 to 5 days for reevaluation she is currently on gabapentin This note was dictated using [employer] voice recognition software please call with any questions on syntax or grammar.
[2021-04-18] MEDS ORDERED: Simethicone 125 MG Tab.Chew PO PRN (15:12)
--- NOTE | 2021-04-19 09:45 | CR ---
Abdomen 1V Upright CLINICAL HISTORY: Pain FINDINGS: No free air is identified. The small intestinal configuration is nonacute. There is significant fecal retention throughout the colon IMPRESSION: Moderate fecal retention
== END 2021-04-18 15:38 | disposition home or self-care (01) ==
LOC: JP.ED 11:34
DX: R10.84 Generalized abdominal pain (principal); E78.00 Pure hypercholesterolemia, unspecified; Z88.5 Allergy status to narcotic agent; Z79.82 Long term (current) use of aspirin; Z79.899 Other long term (current) drug therapy; Z20.822 Contact with and (suspected) exposure to COVID-19
CPT/HCPCS: 36415; 74018; 80053; 83605; 83690; 85025; 99284; U0002

== ENCOUNTER 2021-06-02 04:05 | Observation (INO) | payer MEDICARE, OTHER ==
[2021-06-02] MEDS ORDERED: Loperamide 2 MG Cap PO ONE (04:39)
[2021-06-02] MEDS ORDERED: Simethicone 125 MG Tab.Chew PO STA (04:39)
[2021-06-02] MEDS ORDERED: Acetaminophen 500 MG Tab PO ONE (04:42)
[2021-06-02] MEDS ORDERED: Potassium Chloride 20 MEQ Tab.ER PO ONE ×2 (05:20→13:00)
[2021-06-02] MEDS ORDERED: NS + KCl 20mEq/L 1,000 ML IV SCH (05:30)
[2021-06-02 05:39] LABS: CORONAVIRUS COVID-19 NAA NEGATIVE (NEGATIVE)
[2021-06-02] MEDS ORDERED: Ondansetron 4 MG/2 ML SDV IVPUSH PRN (08:43)
[2021-06-02] MEDS: NS + KCl 20mEq/L 1,000 ML IV SCH ×2 (09:30→19:17)
[2021-06-02] MEDS: Pantoprazole 40 MG **PTOM PO SCH ×2 (10:06→10:08)
[2021-06-02] MEDS: Vancomycin 125 MG Cap PO SCH ×3 (10:06→21:13)
[2021-06-02] MEDS ORDERED: Ondansetron 4 MG Tab.DIS PO PRN (11:58)
[2021-06-02] MEDS: Acetaminophen 325 MG Tab PO PRN ×3 (13:56→23:24)
[2021-06-02] MEDS ORDERED: Pravastatin 20 MG Tab PO SCH (21:00)
[2021-06-02] MEDS: SIMVASTATIN 10 MG PO SCH (21:13)
[2021-06-03] MEDS: Acetaminophen 325 MG Tab PO PRN ×2 (03:48→13:24)
[2021-06-03] MEDS: Vancomycin 125 MG Cap PO SCH ×4 (05:20→21:12)
[2021-06-03] MEDS: NS + KCl 20mEq/L 1,000 ML IV SCH (05:21)
[2021-06-03] MEDS: Pantoprazole 40 MG **PTOM PO SCH (07:58)
[2021-06-03] MEDS ORDERED: Ibuprofen 600 MG Tab PO ONE (15:30)
[2021-06-03] MEDS: SIMVASTATIN 10 MG PO SCH (21:11)
[2021-06-04] MEDS: Acetaminophen 325 MG Tab PO PRN (04:32)
[2021-06-04] MEDS: Vancomycin 125 MG Cap PO SCH ×2 (06:05→09:28)
[2021-06-04 07:00] VITALS: BP 117/59; PULSE 64
[2021-06-04] MEDS: Pantoprazole 40 MG **PTOM PO SCH (07:22)
== END 2021-06-04 11:30 | disposition home or self-care (01) ==
LOC: JP.ED 04:05 → JP.MS 07:17
PROVIDERS: ADMIT Family Medicine; ATTEND Internal Medicine
DX: A04.72 Enterocolitis due to Clostridium difficile, not specified as recurrent (principal); E11.9 Type 2 diabetes mellitus without complications; E78.5 Hyperlipidemia, unspecified; E87.6 Hypokalemia; J18.9 Pneumonia, unspecified organism; Z20.822 Contact with and (suspected) exposure to COVID-19; Z98.890 Other specified postprocedural states; Z90.49 Acquired absence of other specified parts of digestive tract; Z88.8 Allergy status to other drugs, medicaments and biological substances; Z79.899 Other long term (current) drug therapy
CPT/HCPCS: 0241U; 36415; 80048; 80053; 81001; 83735; 84132; 85025; 85027; 87046; 87493; 87899; 96365; 96366; 99284; A9270; J3480; 99285; G0378

== ENCOUNTER 2021-06-29 07:22 | Emergency (ER) | payer MEDICARE, OTHER ==
[2021-06-29 07:33] VITALS: BP 119/56; PULSE 102
[2021-06-29 08:45] LABS: CORONAVIRUS COVID-19 NAA NEGATIVE (NEGATIVE)
== END 2021-06-29 09:15 | disposition home or self-care (01) ==
LOC: JP.ED 07:22
DX: J20.8 Acute bronchitis due to other specified organisms (principal); F41.9 Anxiety disorder, unspecified; R20.2 Paresthesia of skin; E78.00 Pure hypercholesterolemia, unspecified; K21.9 Gastro-esophageal reflux disease without esophagitis; Z79.899 Other long term (current) drug therapy; Z88.6 Allergy status to analgesic agent; Z20.822 Contact with and (suspected) exposure to COVID-19
CPT/HCPCS: 0241U; 36415; 71046; 80053; 85025; 99284

== ENCOUNTER 2021-07-08 14:13 | Emergency (ER) | payer MEDICARE, OTHER ==
[2021-07-08 14:32] VITALS: BP 119/69; PULSE 105
[2021-07-08] MEDS ORDERED: Sodium Chloride 0.9% 500 ML IV ONE (15:00)
[2021-07-08] MEDS ORDERED: Sodium Chloride 0.9% 10 ML Syringe FLUSH PRN (15:00)
[2021-07-08] MEDS ORDERED: Simethicone 125 MG Tab.Chew PO ONE (15:03)
[2021-07-08] MEDS ORDERED: Vancomycin 125 MG Cap PO ONE (15:08)
[2021-07-08] MEDS ORDERED: Alum Hydrox/Mag Hydrox/Simeth 15 ML, Lidocaine 2% 15 ML PO ONE ×4 (15:27→15:29)
[2021-07-08] MEDS ORDERED: Potassium Chloride 10% 20 MEQ/15 ML Soln 15 ML UD Cup PO ONE (16:15)
[2021-07-08] MEDS ORDERED: Potassium Chloride 20 MEQ Tab.ER PO ONE (16:21)
== END 2021-07-08 16:53 | disposition home or self-care (01) ==
LOC: JP.ED 14:13
DX: A04.71 Enterocolitis due to Clostridium difficile, recurrent (principal); E87.6 Hypokalemia; D64.9 Anemia, unspecified; E78.00 Pure hypercholesterolemia, unspecified; Z88.8 Allergy status to other drugs, medicaments and biological substances; Z79.899 Other long term (current) drug therapy
CPT/HCPCS: 36415; 80048; 80076; 85025; 86140; 99284; A9270; J7040

== ENCOUNTER 2021-12-22 14:25 | Emergency (ER) | payer MEDICARE, OTHER ==
[2021-12-22 16:13] VITALS: BP 109/56; PULSE 77
== END 2021-12-22 16:44 | disposition home or self-care (01) ==
LOC: JP.ED 14:25
DX: R55 Syncope and collapse (principal); R06.02 Shortness of breath; E78.00 Pure hypercholesterolemia, unspecified; K21.9 Gastro-esophageal reflux disease without esophagitis; Z20.822 Contact with and (suspected) exposure to COVID-19; Z88.8 Allergy status to other drugs, medicaments and biological substances; Z79.899 Other long term (current) drug therapy
CPT/HCPCS: 36415; 80048; 85025; 99284; U0002

== ENCOUNTER 2021-12-28 10:12 | Emergency (ER) | payer MEDICARE, OTHER ==
[2021-12-28] MEDS ORDERED: Sodium Chloride 0.9% 10 ML Syringe FLUSH PRN (12:20)
[2021-12-28] MEDS ORDERED: Pantoprazole 40 MG Vial IVPUSH ONE (12:21)
[2021-12-28 12:22] VITALS: BP 99/55; PULSE 68
[2021-12-28 12:25] LABS: ESTIMATED GFR 71 mL/min (>60)
[2021-12-28] MEDS ORDERED: predniSONE 20 MG Tab PO ONE (13:40)
== END 2021-12-28 14:29 | disposition home or self-care (01) ==
LOC: JP.ED 10:12
DX: R51.9 Headache, unspecified (principal); K30 Functional dyspepsia; R74.8 Abnormal levels of other serum enzymes; R70.0 Elevated erythrocyte sedimentation rate; E78.00 Pure hypercholesterolemia, unspecified; K21.9 Gastro-esophageal reflux disease without esophagitis; Z88.5 Allergy status to narcotic agent; Z79.899 Other long term (current) drug therapy; Z20.822 Contact with and (suspected) exposure to COVID-19
CPT/HCPCS: 36415; 70450; 74022; 80053; 81001; 85025; 85651; 96374; 99283; 99284; C9113; J3490; J7512; U0002

== ENCOUNTER 2022-01-05 05:14 | Emergency (ER) | payer MEDICARE, OTHER ==
[2022-01-05] MEDS ORDERED: Sodium Chloride 0.9% 10 ML Syringe FLUSH PRN (05:23)
[2022-01-05] MEDS ORDERED: Sodium Chloride 0.9% 10 ML Syringe FLUSH ONE (06:35)
[2022-01-05] MEDS ORDERED: Iopamidol 755 Mg/ML 100 ML Bottle IV SCH (06:45)
[2022-01-05] MEDS ORDERED: Sodium Chloride 0.9% 50 ML IV SCH (06:45)
[2022-01-05 07:38] VITALS: BP 101/41; PULSE 61
== END 2022-01-05 08:42 | disposition home or self-care (01) ==
LOC: JP.ED 05:14
DX: R06.02 Shortness of breath (principal); R51.9 Headache, unspecified; F41.9 Anxiety disorder, unspecified; E78.00 Pure hypercholesterolemia, unspecified; Z90.49 Acquired absence of other specified parts of digestive tract; Z88.8 Allergy status to other drugs, medicaments and biological substances; Z79.899 Other long term (current) drug therapy; Z79.82 Long term (current) use of aspirin; Z20.822 Contact with and (suspected) exposure to COVID-19
CPT/HCPCS: 36415; 71045; 71275; 80048; 83880; 85025; 85379; 85651; 86140; 93005; 99285; J3490; Q9967; U0002

== ENCOUNTER 2022-01-07 05:28 | Emergency (ER) | payer MEDICARE, OTHER ==
[2022-01-07 05:56] VITALS: BP 111/57; PULSE 73
[2022-01-07] MEDS ORDERED: Sodium Chloride 0.9% 10 ML Syringe FLUSH PRN (06:08)
[2022-01-07] MEDS ORDERED: fentaNYL 100 MCG/2 ML SDV IVPUSH ONE (06:08)
== END 2022-01-07 07:28 | disposition home or self-care (01) ==
LOC: JP.ED 05:28
DX: R51.9 Headache, unspecified (principal); G89.4 Chronic pain syndrome; K21.9 Gastro-esophageal reflux disease without esophagitis; Z88.8 Allergy status to other drugs, medicaments and biological substances; Z79.899 Other long term (current) drug therapy; Z79.82 Long term (current) use of aspirin; Z90.49 Acquired absence of other specified parts of digestive tract
CPT/HCPCS: 96374; 99282; J3010; J3490; J0690; J2704; J2920; J7121

== ENCOUNTER → 2022-01-07 | Day surgery (SDC) | payer MEDICARE, OTHER ==
[~2022-01-07] MED LIST: Bacitracin Oint 1 GM U/D Packet ONE; Dextrose 5%-Lactated Ringers 1,000 ML IV SCH; Lidocaine 1% with EPINEPHrine 1:100,000 50 ML MDV ONE; Propofol 200 MG/20 ML SDV ONE; ceFAZolin 1 GM in Premix Bag 1 BAG IV ONE; fentaNYL 100 MCG/2 ML SDV ONE; methylPREDNISolone Sodium Succinate 40 MG/1 ML SDV IVPUSH ONE
[2022-01-07 11:52] VITALS: BP 108/59; PULSE 68
== END ==
LOC: JP.SDS 06:51
PROVIDERS: ATTEND Surgery
DX: R51.9 Headache, unspecified (principal); E11.9 Type 2 diabetes mellitus without complications; Z88.8 Allergy status to other drugs, medicaments and biological substances
CPT/HCPCS: J0690; J2704; J2920; J3010; J7121

== ENCOUNTER 2022-01-21 19:59 | Emergency (ER) | payer MEDICARE, OTHER ==
[2022-01-21] MEDS ORDERED: Aspirin 81 MG Tab.Chew PO ONE (20:27)
[2022-01-21 20:45] LABS: ESTIMATED GFR 62 mL/min (>60); TROPONIN I HIGH SENSITIVITY 5.4 pg/mL (<=60.3)
[2022-01-21] MEDS ORDERED: Alum Hydrox/Mag Hydrox/Simeth 15 ML, Lidocaine 2% 15 ML PO ONE ×2 (21:33)
[2022-01-21 21:55] VITALS: PULSE 72
[2022-01-21 22:21] VITALS: BP 103/46
== END 2022-01-21 22:29 | disposition home or self-care (01) ==
LOC: JP.ED 19:59
DX: K21.9 Gastro-esophageal reflux disease without esophagitis (principal); E78.00 Pure hypercholesterolemia, unspecified; F41.9 Anxiety disorder, unspecified; F32.A Depression, unspecified; Z79.899 Other long term (current) drug therapy; Z88.8 Allergy status to other drugs, medicaments and biological substances
CPT/HCPCS: 36415; 71046; 80053; 83690; 84484; 85025; 93005; 99285; A9270

== ENCOUNTER 2022-03-03 06:45 | Emergency (ER) | payer MEDICARE, OTHER ==
[2022-03-03 07:04] VITALS: BP 158/60; PULSE 77
[2022-03-03] MEDS ORDERED: Loperamide 2 MG Cap PO ONE (07:30)
== END 2022-03-03 08:19 | disposition home or self-care (01) ==
LOC: JP.ED 06:45
DX: R19.7 Diarrhea, unspecified (principal); E78.00 Pure hypercholesterolemia, unspecified; Z79.899 Other long term (current) drug therapy; Z88.8 Allergy status to other drugs, medicaments and biological substances; Z79.82 Long term (current) use of aspirin; Z90.49 Acquired absence of other specified parts of digestive tract
CPT/HCPCS: 36415; 80048; 85025; 99284; A9270